=== PATIENT | female | born 1980 | race Caucasian/White ===

== ENCOUNTER 2020-05-09 12:54 | Outpatient (CLI) | payer OTHER ==
--- NOTE | 2020-05-09 17:08 | RAD ---
CHEST TWO VIEWS: 05/09/20 Comparison is made with a 11/28/15 study. The heart is normal in size. The mediastinum appears normal. There is no focal infiltrate or effusion . One might argue that some of the lung markings are little more prominent today than before, which c an be a sign of bronchitis, but the difference is only slight. It would be perhaps a reach at this po int to say that this was not the patient's current norm. IMPRESSION: Equivocal prominence of lung markings. POS: HOME
== END 2020-05-09 12:55 | disposition home or self-care (01) ==
LOC: BURRAD 12:54
PROVIDERS: ATTEND Clinical Nurse Specialist Medical-Surgical
DX: J40 Bronchitis, not specified as acute or chronic (principal)
CPT/HCPCS: 71046